=== PATIENT | male | born 1945 | race Caucasian/White ===

== ENCOUNTER 2023-07-28 20:39 | Emergency (ER) | payer OTHER, MEDICARE ==
[2023-07-28 21:07] VITALS: BP 125/73; PULSE 72; RESP 16; TEMP 98.2; BMI 27.3
[2023-07-28] MEDS ORDERED: AZITHROMYCIN 500 MG TABLET ONE (21:09)
[2023-07-28] MEDS: AZITHROMYCIN 500 MG TABLET PO ONE (21:09)
== END 2023-07-28 21:14 | disposition home or self-care (01) ==
LOC: FER 20:39
DX: M25.572 Pain in left ankle and joints of left foot (principal)
CPT/HCPCS: 99283-25